=== PATIENT | male | born 1990 | race Caucasian/White ===

== ENCOUNTER 2019-08-01 15:02 | Emergency (ER) | payer OTHER ==
[~2019-08-01] VITALS: Ht 190.5 cm; Wt 97.5 kg
[~2019-08-01 15:02] MED LIST: BACLOFEN 10MG T10 M1 PO; DELTASONE20 MG PO; MEDROLDOSEPACK; PERCOCET 5-3251 EACH PO; ULTRAM 50MG TAB50 MG PO; VICODIN 5-3001 EACH; ZANAFLEX4 M1 PO
[2019-08-01] MEDS ORDERED: NAPROSYN500 MG PO (15:55)
[2019-08-01] MEDS ORDERED: CIPROFLOXIN HC2.5 M1 OPHTHALMIC (15:55)
[2019-08-01] MEDS ORDERED: TYLENOL WITH CO1 TA1 PO (15:55)
[2019-08-01 16:02] VITALS: BP 152/81
== END 2019-08-01 16:02 | disposition home or self-care (01) ==
LOC: M.ERS 15:02
DX: T15.01XA Foreign body in cornea, right eye, initial encounter (principal); F17.210 Nicotine dependence, cigarettes, uncomplicated; Z88.8 Allergy status to other drugs, medicaments and biological substances; X58.XXXA Exposure to other specified factors, initial encounter; Y93.89 Activity, other specified; Y92.89 Other specified places as the place of occurrence of the external cause; Y99.0 Civilian activity done for income or pay

== ENCOUNTER 2019-08-27 13:51 | Emergency (ER) | payer OTHER ==
[~2019-08-27] VITALS: Ht 190.5 cm; Wt 95.3 kg
[~2019-08-27 13:51] MED LIST changes: +CIPROFLOXIN HC2.5 M1 OPHTHALMIC; +NAPROSYN500 MG PO; +TYLENOL WITH CO1 TA1 PO
[2019-08-27] MEDS ORDERED: PENICILLIN VK500 MG PO (14:33)
[2019-08-27] MEDS ORDERED: IBUPROFEN 800800 M1 PO (14:33)
[2019-08-27 14:46] VITALS: BP 145/85
[2019-08-28] MEDS ORDERED: ZOFRAN ODT4 MG SUBLING (09:01)
[2019-08-28] MEDS ORDERED: NORCO 5-325 TA1 EAC1 PO (09:01)
== END 2019-08-27 14:46 | disposition home or self-care (01) ==
LOC: M.ERS 13:51
DX: K04.7 Periapical abscess without sinus (principal); Z88.8 Allergy status to other drugs, medicaments and biological substances

== ENCOUNTER 2019-08-28 08:30 | Emergency (ER) | payer OTHER ==
[~2019-08-28] VITALS: Ht 190.5 cm; Wt 95.3 kg
[~2019-08-28 08:30] MED LIST changes: +IBUPROFEN 800800 M1 PO; +PENICILLIN VK500 MG PO
[2019-08-28] MEDS ORDERED: ZOFRAN ODT4 MG SUBLING (09:01)
[2019-08-28] MEDS ORDERED: NORCO 5-325 TA1 EAC1 PO (09:01)
[2019-08-28 09:23] VITALS: BP 167/96
== END 2019-08-28 09:23 | disposition home or self-care (01) ==
LOC: M.ERS 08:30
DX: K04.7 Periapical abscess without sinus (principal); Z88.8 Allergy status to other drugs, medicaments and biological substances

== ENCOUNTER 2019-12-01 11:16 | Emergency (ER) | payer OTHER ==
[~2019-12-01] VITALS: Ht 190.5 cm; Wt 106.1 kg
[~2019-12-01 11:16] MED LIST changes: +NORCO 5-325 TA1 EAC1 PO; +ZOFRAN ODT4 MG SUBLING
[2019-12-01 11:29] LABS: URINE BILIRUBIN NEGATIVE (Negative); URINE BLOOD TRACE (Negative); URINE CLARITY CLEAR; URINE COLOR YELLOW; URINE GLUCOSE-RANDOM NEGATIVE (Negative); URINE KETONES NEGATIVE (Negative); URINE LEUKOCYTES-REFLEX 1+ (Negative); URINE NITRITE-REFLEX NEGATIVE (Negative); URINE PROTEIN NEGATIVE (Negative); URINE UROBILINOGEN 0.2 E.U./dl (0.2-1.0)
[2019-12-01 11:46] LABS: SQUAMOUS NONE SEEN /LPF (0-3)
[2019-12-01 11:47] LABS: URINE RBC 3-10 Few /HPF (0-2)
[2019-12-01 11:48] LABS: BACTERIA-REFLEX None Seen /HPF (None Seen); CASTS None Seen /LPF (None Seen); CRYSTALS None Seen /LPF (None Seen); MUCUS >6 Heavy strn/LPF (None Seen)
[2019-12-01 11:59] VITALS: BP 128/83
== END 2019-12-01 12:00 | disposition home or self-care (01) ==
LOC: M.ERS 11:16
PROVIDERS: Physician Assistant
DX: Z20.2 Contact with and (suspected) exposure to infections with a predominantly sexual mode of transmission (principal); Z88.8 Allergy status to other drugs, medicaments and biological substances; Z79.899 Other long term (current) drug therapy

== ENCOUNTER 2021-05-07 15:40 | Emergency (ER) | payer OTHER ==
[~2021-05-07] VITALS: Ht 190.5 cm; Wt 97.5 kg
[2021-05-07 17:33] VITALS: BP 138/78
--- NOTE | 2021-05-08 07:50 | EKG ---
[place] [address] ELECTROCARDIOGRAM REPORT Name: EAMON PINEDA Room: [facility]#: [id number] Admission: 05/07/21 Attend Phys: Discharge: 05/07/21 Date of : 88 Date of Service: 05/07/21 1600 Report #: [id number] THIS REPORT FOR: //name// [facility] ED Test Date: 2021-05-07 Test Time: 16:00:12 Pat Name: EAMON PINEDA Department: Room: Gender: Rn Interventional: : 1990 Requested By: Moustapha Meek Order Number: [id number] MD: Isaiah Stevens Measurements Intervals [place] Rate: 76 P: 15 NM: 124 QRS: 75 QRSD: 101 T: -15 QT: 405 QTc: 456 Interpretive Statements Sinus rhythm Nonspecific T abnormalities, inferior leads Compared to ECG 08/19/2010 01:33:17 T-wave abnormality now present Sinus arrhythmia no longer present Electronically Signed On 05-08-2021 7:50:26 CDT by Isaiah Stevens [email or web address] <ELECTRONICALLY SIGNED> By: Isaiah Stevens MD, FACC 05/08/21 0750 1600 1600 Isaiah Stevens MD, FAC /EPI
== END 2021-05-07 17:33 | disposition home or self-care (01) ==
LOC: M.ERS 15:40
DX: R06.02 Shortness of breath (principal); Z20.822 Contact with and (suspected) exposure to COVID-19